=== PATIENT | male | born 2005 | race Caucasian/White ===

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

== ENCOUNTER 2025-01-04 00:52 | Emergency (ER) | payer BC, MEDICAID ==
[~2025-01-04] VITALS: Ht 172.7 cm; Wt 61.7 kg
[~2025-01-04 00:52] MED LIST: IBUP-2314 PO
[2025-01-04 01:56] LABS: PLATELET COUNT (AUTO) 233 K/uL (150-450); RED BLOOD CELL COUNT(AUTO) 5.11 MIL/uL (4.5-6.0); RED CELL DISTRIBUTION WIDTH 14.1 % (11.5-15.0); WHITE BLOOD COUNT (AUTO) 8.8 K/uL (4.3-11.0)
[2025-01-04 02:06] LABS: CALCIUM, SERUM 9.3 mg/dL (8.5-10.1); CREATININE 1.0 mg/dL (0.6-1.3); SODIUM SERUM 141.0 mmol/L (136-145); UREA NITROGEN, BLOOD 14.0 mg/dL (7-18)
[2025-01-04 02:19] LABS: ASPARTATE AMINOTRANSFERASE 18.0 U/L (15-37); NT-PRO BNP 9.0 pg/mL (0-125); TOTAL PROTEIN, SERUM 7.5 g/dL (6.4-8.2)
[2025-01-04 02:20] LABS: APPEARANCE,URINE CLEAR (CLEAR); BLOOD, URINE NEGATIVE Ery/uL (NEGATIVE); LEUKOCYTE ESTERASE ,URINE NEGATIVE (NEGATIVE); NITRITE, URINE NEGATIVE (NEGATIVE); UGLUCOSE NEGATIVE (NEGATIVE)
[2025-01-04 02:32] LABS: AMPHETAMINE, URINE NEGATIVE (NEGATIVE); BARBITURATE, URINE NEGATIVE (NEGATIVE); BENZODIAZEPINE, URINE NEGATIVE (NEGATIVE); CANNABINOID, URINE NEGATIVE (NEGATIVE); COCCAINE, URINE NEGATIVE (NEGATIVE); OPIATE, URINE NEGATIVE (NEGATIVE)
[2025-01-04 04:17] VITALS: BP 132/80; TEMP 98.6; O2SAT 99
[2025-01-04 04:42] LABS: ERYTHROCYTE SEDIMENTATION RATE 16 MM/HR (0-15)
[2025-01-04] MEDS ORDERED: PRED50TA PO (04:56)
== END 2025-01-04 04:17 | disposition home or self-care (01) ==
LOC: ER 00:56
DX: R07.2 Precordial pain (principal); R06.02 Shortness of breath; Z88.2 Allergy status to sulfonamides; Z79.899 Other long term (current) drug therapy
CPT/HCPCS: 36415; 71045-TC; 80053-TC; 83880; 84484-TC; 85025-TC; 85378-TC; 85652-TC